=== PATIENT | female | born 1950 | race Caucasian/White ===

== ENCOUNTER 2017-10-21 13:11 | Emergency (ER) | payer MEDICARE, OTHER ==
[~2017-10-21] VITALS: Ht 157.5 cm; Wt 59.0 kg
[~2017-10-21 13:11] MED LIST: ASPI1TAB PO; CETI10TA17 PO; ESTR1TAB24 PO; HYDR-3454 PO; LEVO75TA57 PO; LVT.05T; MELO-198 PO; MULT-1029 PO; NF-ESOM40C; PSYL1CAP3 PO; ZINC50TA49 PO; estrogen PO
--- OUTSIDE RECORDS SUMMARY | 2017-10-21 13:17 | XMS REPORT | Continuity of Care Document ---
Author Author [facility] Organization [facility] Address Unknown Phone Unavailable Allergies Active Description Code Type Severity Reaction Onset Reported/Identified Relationship to Patient Clinical Status Yes codeine [id number] Drug Allergy Unknown UNKNOWN 03/02/2007 Yes propoxyphene [id number] Drug Allergy Unknown UNKNOWN 03/02/2007 Yes metronidazole [id number] Drug Allergy Moderate HIVES 06/29/2014 Medications There is no data. Problems Date Dx Coded Attending Type Code Diagnosis Diagnosed By 05/11/2013 MICAH BARRERA DO Ot 242.90 THYROTOX NOS NO CRISIS 05/11/2013 MICAH BARRERA DO Ot 276.51 DEHYDRATION 05/11/2013 MICAH BARRERA DO Ot 780.2 SYNCOPE AND COLLAPSE 06/27/2014 NARINDER RINCON, WILSON Vasques Ot 455.3 EXT HEMORRHOID W/O COMPL 06/27/2014 NARINDER RINCON, WILSON Vasques Ot 455.9 RESIDUAL HEMORRHOID TAGS 06/27/2014 NARINDER RINCON, WILSON Vasques Ot 562.10 DIVERTICULOSIS COLON (W/O MENT OF HEMORR 06/27/2014 NARINDER RINCON, WILSON Vasques Ot V74.8 SCREEN-BACTERIAL DIS NEC 07/13/2014 YING RINCON, JANICE Hays Ot V76.12 06/20/2015 YING RINCON, JANICE Hays Ot 793.89 06/20/2015 JANICE HE MD, Ot V76.12 06/20/2015 JANICE HE MD Ot 793.80 06/20/2015 JANICE HE MD, Ot V76.12 06/20/2015 NARINDER RINCON, WILSON Vasques Ot 569.3 06/20/2015 NARINDER RINCON, WILSON Vasques Ot V16.0 06/20/2015 NARINDER RINCON, WILSON Vasques Ot V72.84 07/17/2015 YING RINCON, JANICE Hays Ot Z12.31 07/19/2015 JANICE HE MD, Ot R93.8 12/26/2015 JANICE HE MD, Ot R92.8 OTH ABN AND INCONCLUSIVE FINDINGS ON DX 12/26/2015 JANICE HE MD, Ot R92.8 OTH ABN AND INCONCLUSIVE FINDINGS ON DX 01/23/2016 JANICE HE MD, Ot R92.8 OTH ABN AND INCONCLUSIVE FINDINGS ON DX 04/17/2016 JANICE HE MD, Ot 793.89 OTH (ABN) FINDINGS ON RADIOLOGICAL EXAMI 04/17/2016 JANICE HE MD, Ot V76.12 OTH SCREEN MAMMO-MALIGN NEOPLASM OF RAGHU 04/17/2016 JANICE HE MD Ot 793.80 UNSPEC ABNORMAL MAMMOGRAM 04/17/2016 JANICE HE MD, Ot V76.12 OTH SCREEN MAMMO-MALIGN NEOPLASM OF RAGHU 04/17/2016 WILSON BARCENAS MD Ot 569.3 RECTAL ANAL HEMORRHAGE 04/17/2016 WILSON BARCENAS MD Ot V16.0 FAMILY HX-GI MALIGNANCY 04/17/2016 NARINDER RINCON, WILSON Vasques Ot V72.84 EXAM PRE-OPERATIVE NOS 04/17/2016 JANICE HE MD, Ot Z12.31 ENCNTR SCREEN MAMMOGRAM FOR MALIGNANT NE 04/17/2016 JANICE HE MD, Ot R93.8 ABNORMAL FINDINGS ON DIAGNOSTIC IMAGING 04/17/2016 JANICE HE MD, Ot R92.8 OTH ABN AND INCONCLUSIVE FINDINGS ON DX 05/03/2016 JANICE HE MD, Ot 793.89 OTH (ABN) FINDINGS ON RADIOLOGICAL EXAMI 05/03/2016 JANICE HE MD, Ot V76.12 OTH SCREEN MAMMO-MALIGN NEOPLASM OF RAGHU 05/03/2016 JANICE HE MD Ot 793.80 UNSPEC ABNORMAL MAMMOGRAM 05/03/2016 JANICE HE MD, Ot V76.12 OTH SCREEN MAMMO-MALIGN NEOPLASM OF RAGHU 05/03/2016 WILSON BARCENAS MD Ot 569.3 RECTAL ANAL HEMORRHAGE 05/03/2016 NARINDER RINCON, WILSON Vasques Ot V16.0 FAMILY HX-GI MALIGNANCY 05/03/2016 NARINDER RINCON, WILSON Vasuqes Ot V72.84 EXAM PRE-OPERATIVE NOS 05/03/2016 JANICE HE MD Ot Z12.31 ENCNTR SCREEN MAMMOGRAM FOR MALIGNANT NE 05/03/2016 JANICE HE MD Ot R93.8 ABNORMAL FINDINGS ON DIAGNOSTIC IMAGING 05/03/2016 JANICE HE MD, Ot R92.8 OTH ABN AND INCONCLUSIVE FINDINGS ON DX 05/07/2016 JANICE HE MD Ot 793.89 OTH (ABN) FINDINGS ON RADIOLOGICAL EXAMI 05/07/2016 JANICE HE MD, Ot V76.12 OTH SCREEN MAMMO-MALIGN NEOPLASM OF RAGHU 05/07/2016 JANICE HE MD Ot 793.80 UNSPEC ABNORMAL MAMMOGRAM 05/07/2016 JANICE HE MD, Ot V76.12 OTH SCREEN MAMMO-MALIGN NEOPLASM OF RAGHU 05/07/2016 NARINDER RINCON, WILSON Vasques Ot 569.3 RECTAL ANAL HEMORRHAGE 05/07/2016 NARINDER RINCON, WILSON Vasques Ot V16.0 FAMILY HX-GI MALIGNANCY 05/07/2016 NARINDER RINCON, WILSON M Ot V72.84 EXAM PRE-OPERATIVE NOS 05/07/2016 JANICE HE MD, Ot Z12.31 ENCNTR SCREEN MAMMOGRAM FOR MALIGNANT NE 05/07/2016 JANICE HE MD Ot R93.8 ABNORMAL FINDINGS ON DIAGNOSTIC IMAGING 05/07/2016 JANICE HE MD Ot R92.8 OTH ABN AND INCONCLUSIVE FINDINGS ON DX 05/07/2016 JANICE HE MD Ot 793.89 OTH (ABN) FINDINGS ON RADIOLOGICAL EXAMI 05/07/2016 JANICE HE MD, Ot V76.12 OTH SCREEN MAMMO-MALIGN NEOPLASM OF RAGHU 05/07/2016 JANICE HE MD Ot 793.80 UNSPEC ABNORMAL MAMMOGRAM 05/07/2016 JANICE HE MD, Ot V76.12 OTH SCREEN MAMMO-MALIGN NEOPLASM OF RAGHU 05/07/2016 NARINDER RINCNO, WILSON Vasques Ot 569.3 RECTAL ANAL HEMORRHAGE 05/07/2016 WILSON BARCENAS MD Ot V16.0 FAMILY HX-GI MALIGNANCY 05/07/2016 WILSON BARCENAS MD Ot V72.84 EXAM PRE-OPERATIVE NOS 05/07/2016 JANICE HE MD Ot Z12.31 ENCNTR SCREEN MAMMOGRAM FOR MALIGNANT NE 05/07/2016 JANICE HE MD Ot R93.8 ABNORMAL FINDINGS ON DIAGNOSTIC IMAGING 05/07/2016 JANICE HE MD, Ot R92.8 OTH ABN AND INCONCLUSIVE FINDINGS ON DX 05/07/2016 RUI CALLAHAN MD Ot M70.72 OTHER BURSITIS OF HIP, LEFT HIP 05/29/2016 RUI CALLAHAN MD Ot M70.72 OTHER BURSITIS OF HIP, LEFT HIP 06/24/2016 JANICE HE MD Ot 793.89 OTH (ABN) FINDINGS ON RADIOLOGICAL EXAMI 06/24/2016 JANICE HE MD Ot V76.12 OTH SCREEN MAMMO-MALIGN NEOPLASM OF RAGHU 06/24/2016 JANICE HE MD Ot 793.80 UNSPEC ABNORMAL MAMMOGRAM 06/24/2016 JANICE HE MD Ot V76.12 OTH SCREEN MAMMO-MALIGN NEOPLASM OF RAGHU 06/24/2016 NARINDER RINCON, WILSON Vasques Ot 569.3 RECTAL ANAL HEMORRHAGE 06/24/2016 WILSON BARCENAS MD Ot V16.0 FAMILY HX-GI MALIGNANCY 06/24/2016 WILSON BARCENAS MD Ot V72.84 EXAM PRE-OPERATIVE NOS 06/24/2016 JANICE HE MD Ot Z12.31 ENCNTR SCREEN MAMMOGRAM FOR MALIGNANT NE 06/24/2016 JANICE HE MD Ot R93.8 ABNORMAL FINDINGS ON DIAGNOSTIC IMAGING 06/24/2016 JANICE HE MD Ot R92.8 OTH ABN AND INCONCLUSIVE FINDINGS ON DX 06/24/2016 RUI CALLAHAN MD Ot M70.72 OTHER BURSITIS OF HIP, LEFT HIP 06/24/2016 JANICE HE MD Ot 793.89 OTH (ABN) FINDINGS ON RADIOLOGICAL EXAMI 06/24/2016 JANICE HE MD, Ot V76.12 OTH SCREEN MAMMO-MALIGN NEOPLASM OF RAGHU 06/24/2016 JANICE HE MD, Ot 793.80 UNSPEC ABNORMAL MAMMOGRAM 06/24/2016 JANICE HE MD, Ot V76.12 OTH SCREEN MAMMO-MALIGN NEOPLASM OF RAGHU 06/24/2016 WILSON BARCENAS MD Ot 569.3 RECTAL ANAL HEMORRHAGE 06/24/2016 WILSON BARCENAS MD Ot V16.0 FAMILY HX-GI MALIGNANCY 06/24/2016 WILSON BARCENAS MD Ot V72.84 EXAM PRE-OPERATIVE NOS 06/24/2016 JANICE HE MD, Ot Z12.31 ENCNTR SCREEN MAMMOGRAM FOR MALIGNANT NE 06/24/2016 JANICE HE MD, Ot R93.8 ABNORMAL FINDINGS ON DIAGNOSTIC IMAGING 06/24/2016 JANICE HE MD, Ot R92.8 OTH ABN AND INCONCLUSIVE FINDINGS ON DX 06/24/2016 LONODN RINCON, RUI Agudelo Ot M70.72 OTHER BURSITIS OF HIP, LEFT HIP 06/25/2016 JANICE HE MD, Ot Z12.31 ENCNTR SCREEN MAMMOGRAM FOR MALIGNANT NE 06/25/2016 JANICE HE MD, Ot N64.89 OTHER SPECIFIED DISORDERS OF BREAST 06/30/2016 JANICE HE MD, Ot N64.89 OTHER SPECIFIED DISORDERS OF BREAST 07/04/2016 JANICE HE MD, Ot N64.89 OTHER SPECIFIED DISORDERS OF BREAST 07/04/2016 JANICE HE MD, Ot Z12.31 ENCNTR SCREEN MAMMOGRAM FOR MALIGNANT NE 08/07/2016 JANICE HE MD, Ot N64.89 OTHER SPECIFIED DISORDERS OF BREAST 08/07/2016 JANICE HE MD, Ot Z12.31 ENCNTR SCREEN MAMMOGRAM FOR MALIGNANT NE Procedures There is no data. Results There is no data. Encounters ACCT No. Visit Date/Time Discharge Status Pt. Type Provider Facility Loc./Unit Complaint [id number] 06/24/2016 09:16:00 06/24/2016 23:59:59 CLS Outpatient JANICE HE MD [facility] RAD 6 MONTH F/U [id number] 05/06/2016 09:28:00 05/06/2016 23:59:59 CLS Outpatient RUI CALLAHAN MD [facility] RAD HIP BURSITIS/PAIN [id number] 12/25/2015 12:50:00 12/25/2015 23:59:59 CLS Outpatient JANICE HE MD [facility] RAD 6 MONTH FOLLOW UP RIGHT BREAST [id number] 06/28/2015 07:31:00 06/28/2015 23:59:59 CLS Outpatient JANICE HE MD [facility] RAD ABNORMAL MAMMO [id number] 06/20/2015 12:29:00 06/20/2015 23:59:59 CLS Outpatient JANICE HE MD [facility] RAD SCREENING [id number] 06/27/2014 09:42:00 06/27/2014 16:00:00 DIS Outpatient WILSON BARCENAS MD [facility] SDC SCREENING COLONOSCOPY , ANAL SKIN TAG, EUA [id number] 06/24/2014 09:00:00 06/24/2014 23:59:59 CLS Outpatient WILSON BARCENAS MD [facility] PREOP RECTAL BLEEDING, SCREENING COLON, SKIN TAG, FX HX [id number] 06/16/2014 09:00:00 06/16/2014 23:59:59 CLS Outpatient JANICE HE MD [facility] RAD ROUTINE [id number] 05/20/2013 08:05:00 05/20/2013 23:59:59 CLS Outpatient JANICE HE MD [facility] RAD ABN MAMMO [id number] 05/11/2013 08:57:00 05/11/2013 23:59:59 CLS Outpatient JANICE HE MD [facility] RAD SCREENING [id number] 05/11/2013 09:52:00 05/11/2013 12:49:00 DIS Emergency MICAH BARRERA DO [facility] ER SYNCOPE
--- NOTE | 2017-10-21 13:38 | ED Upper Extremity ---
General Chief Complaint: Upper Extremity Stated Complaint: RT ARM INJURY-FALL History of Present Illness Date Seen by Provider: Oct 21, 2017 Time Seen by Provider: 13:32 Initial Comments Patient presents to the ER with complaints of right elbow right shoulder pain after a fall this morning at [employer]. Patient reports walking down 3 steps and slipping and falling onto her right side. Patient reports pain with pronation and supination of the right arm and wrist. Patient denies any head and neck pain, and denies LOC. Pain/Injury Location: right shoulder, right arm, right elbow, right forearm Method of Injury: fell Modifying Factors: Worse With Movement Allergies and Home Medications Allergies Coded Allergies: metronidazole (Verified Allergy, Intermediate, HIVES, 06/29/14) codeine (Unverified Allergy, Unknown, UNKNOWN, 03/02/07) propoxyphene (Unverified Allergy, Unknown, UNKNOWN, 03/02/07) Home Medications Aspirin/Acetaminophen/Caffeine 1 Tab Tablet, 1 TAB PO PRN, (Reported) Cetirizine Hcl 10 Mg Tablet, 10 MG PO DAILY, (Reported) Estradiol 1 Mg Tablet, 1 MG PO DAILY, (Reported) Meloxicam 7.5 Mg Tablet, 1 EACH PO DAILY, (Reported) Mu-Vits-Min Th/Lycopene/Lutein 1 Each Tablet, 1 EACH PO DAILY, (Reported) Psyllium Husk/Ca Carbonate 1 Cap Capsule, 1 CAP PO QID, (Reported) Zinc Amino Acid Chelate 50 Mg Tablet, 50 MG PO DAILY, (Reported) Patient Home Medication List Home Medication List Reviewed: Yes Constitutional: no symptoms reported, see HPI EENTM: see HPI, no symptoms reported (platelet) Respiratory: no symptoms reported, see HPI Cardiovascular: no symptoms reported, see HPI (4) Gastrointestinal: no symptoms reported, see HPI Genitourinary: no symptoms reported, see HPI Musculoskeletal: see HPI, other (right shoulder and right forearm) Skin: no symptoms reported, see HPI Psychiatric/Neurological: No Symptoms Reported, See HPI Past Etpgkkq-Hfmyvm-Zflkcc Hx Patient Social History Recent Foreign Travel: No Contact w/Someone Who Travel: No Immunizations Up To Date Date of Influenza Vaccine: Jun 21, 2014 Seasonal Allergies Seasonal Allergies: Yes Reproductive System Hx Reproductive Disorders: Yes Genitourinary Genitourinary Disorders: Bladder Infection Gastrointestinal Gastrointestinal Disorders: Gastroesophageal Reflux, Hiatal Hernia Endocrine Endocrine Disorders: Hypothyroidsim Physical Exam Vital Signs Vital Signs - First Documented 10/21/17 13:25 Temp 97.5 Pulse 86 Resp 18 B/P (MAP) 134/79 (97) Pulse Ox 98 Capillary Refill : General Appearance: WD/WN, no apparent distress HEENT: PERRL/EOMI, normal ENT inspection Neck: non-tender, full range of motion Cardiovascular: normal peripheral pulses, regular rate, rhythm, no edema, no gallop, no JVD, no murmur, other (radial pulses strong and capillary Refill is normal.) Respiratory: chest non-tender, lungs clear, normal breath sounds, no respiratory distress Gastrointestinal: normal bowel sounds, non tender Back: normal inspection, no CVA tenderness Shoulder: bone tenderness, limited ROM, pain Elbow/Forearm: Right, bone tenderness, limited ROM, pain Wrist: Yes normal inspection, Yes pain (with pronation and supination) Hand: normal inspection (patient maintains normal function and sensation of the right hand. Patient able to perform the okay sign and the thumbs up sign without difficulty.) Neurologic/Tendon: normal sensation Neurologic/Psychiatric: alert, normal mood/affect, oriented x 3 Skin: normal color, warm/dry Lymphatic: no adenopathy Splinting and Joint Reduction : Progress posterior long arm splint applied. 4in orthoglass. soft roll. and yrn bandage used. Yrn wrap: Yes Arm Sling: Medium Splint Application: Long Arm Progress/Results/Core Measures Results/Orders My Orders Orders - CHARY AMARO APRN Forearm, Right, 2 Views (10/21/17 13:31) Humerus, Right, 2 Views (10/21/17 13:31) Acetaminophen Tablet (Tylenol Tablet) (10/21/17 13:45) Elbow, Right, 3 Views (10/21/17 14:36) Medications Given in ED Current Medications Medications Dose Ordered Sig/Kassandra Route Start Time Stop Time Status Last Admin Dose Admin Acetaminophen 1,000 mg ONCE ONCE PO 10/21/17 13:45 10/21/17 13:46 DC 10/21/17 13:41 1,000 MG Vital Signs/I&O Vital Sign - Last 12Hours 10/21/17 13:25 Temp 97.5 Pulse 86 Resp 18 B/P (MAP) 134/79 (97) Pulse Ox 98 Diagnostic Imaging Diagonstic Imaging: Xray Comments NAME: JOE WARD [facility] REC#: [id number] PT STATUS: REG ER : 1950 PHYSICIAN: CHARY AMARO APRN ADMIT DATE: 10/21/17/ER Draft Date of Exam:10/21/17 ELBOW, RIGHT, 3 VIEWS INDICATION: Right elbow pain. AP, oblique, and lateral views of the right elbow are obtained at 03:20 p.m. There is a focal area of irregularity in the radial head, suspicious for a nondisplaced fracture. The proximal ulna and distal humerus are intact. IMPRESSION: Findings compatible with radial head fracture, follow-up is recommended. Dictated on workstation # [id number] Dict: 10/21/17 1511 Trans: 10/21/17 1516 [id number] Interpreted by: YANET ROSE MD Electronically signed by: Departure Impression Impression: Primary Impression: Radial head fracture Disposition: 01 HOME, SELF-CARE Condition: Stable Departure-Patient Inst. Decision time for Depature: 15:09 Referrals: KENISHA WILLAMS MD, JOHN M MD (PCP/Family) Primary Care Physician RUI CALLAHAN MD, JOHN T MD STRINGER, ROBERT F DO ZAFUTA, MICHAEL P MD Patient Instructions: Elbow Fracture (DC) Add. Discharge Instructions: 1. Return to ER for any concerns 2. Follow-up with orthopedics. Call orthopedic surgeon of your choosing tomorrow to make an appointment to be seen within the next 2-3 weeks. Wear the splint at all times until then. Do not remove it. This this means even showering without on keeping and dry. CHARY AMARO APRN Oct 21, 2017 13:38
[2017-10-21] MEDS ORDERED: ACETAMINOPHEN 500 MG TAB (TYLENOL) PO ONE (13:45)
--- NOTE | 2017-10-21 14:18 | Diagnostic Imaging Report ---
INDICATION: Fall with pain in the right arm shooting to the thumb. TIME OF EXAM: 02:21 p.m. FINDINGS: Two views of the right forearm were obtained. The lateral view does show a prominent anterior fat pad at the elbow. There is some lucency and irregularity involving the radial head, suspicious for a fracture. The remainder of the radius and ulna is intact. IMPRESSION: Findings suggestive of radial head fracture and elbow joint effusion. Dedicated elbow radiographs with radial head views are recommended for further evaluation. Dictated by: Dictated on workstation # [id number]
--- NOTE | 2017-10-21 14:20 | Diagnostic Imaging Report ---
INDICATION: Fall with right arm pain. TIME OF EXAM: 02:18 p.m. FINDINGS: Two views of the right humerus were obtained. There is normal alignment at the glenohumeral joint. There also is normal elbow alignment. The humerus appears intact. No fractures are seen. IMPRESSION: No acute bony abnormality is detected. Dictated by: Dictated on workstation # [id number]
--- NOTE | 2017-10-21 15:17 | Diagnostic Imaging Report ---
INDICATION: Right elbow pain. AP, oblique, and lateral views of the right elbow are obtained at 03:20 p.m. There is a focal area of irregularity in the radial head, suspicious for a nondisplaced fracture. The proximal ulna and distal humerus are intact. IMPRESSION: Findings compatible with radial head fracture, follow-up is recommended. Dictated by: Dictated on workstation # [id number]
[2017-10-21 15:53] VITALS: BP 134/79
== END 2017-10-21 15:33 | disposition home or self-care (01) ==
LOC: EDUNIT# 13:11 → ER 13:13
DX: S52.121A Displaced fracture of head of right radius, initial encounter for closed fracture (principal); K21.9 Gastro-esophageal reflux disease without esophagitis; E03.9 Hypothyroidism, unspecified; Z87.19 Personal history of other diseases of the digestive system; Z79.82 Long term (current) use of aspirin; Z90.710 Acquired absence of both cervix and uterus; Z88.1 Allergy status to other antibiotic agents; Z88.5 Allergy status to narcotic agent; Z88.6 Allergy status to analgesic agent; W10.8XXA Fall (on) (from) other stairs and steps, initial encounter
CPT/HCPCS: 29105; 73060; 73080; 73090

== ENCOUNTER 2017-12-16 13:39 | Outpatient (RCR) | payer OTHER, MEDICARE | END 2018-01-14 13:38 | disposition home or self-care (01) | PROVIDERS: ATTEND Emergency Medicine | DX: S52.121D Displaced fracture of head of right radius, subsequent encounter for closed fracture with routine healing (principal) ==

== ENCOUNTER → 2018-01-15 | Outpatient (CLI) | payer MEDICARE, OTHER ==
--- NOTE | 2018-01-15 19:28 | Diagnostic Imaging Report ---
INDICATION: Routine screening. COMPARISON: Comparison is made with prior study from 06/24/2016 and 06/20/2015. TECHNIQUE: 2D and 3D bilateral screening mammography was performed with computer-aided detection (CAD) system. FINDINGS: Both breasts are heterogeneously dense, limiting the sensitivity of mammography. The parenchymal pattern is stable. No mass or malignant appearing microcalcifications are seen. The axillae are unremarkable. IMPRESSION: No mammographic features suspicious for malignancy are identified. ACR BI-RADS Category 1: Negative. Result letter will be mailed to the patient. Note: At least 10% of breast cancer is not imaged by mammography. Dictated by: Dictated on workstation # [id number]
== END ==
LOC: RAD 15:08
PROVIDERS: ATTEND Obstetrics & Gynecology
DX: Z12.31 Encounter for screening mammogram for malignant neoplasm of breast (principal)
CPT/HCPCS: 77067

== ENCOUNTER → 2018-06-02 | Outpatient (CLI) | payer MEDICARE, OTHER ==
--- NOTE | 2018-06-02 13:23 | Diagnostic Imaging Report ---
PROCEDURE: MRI lumbar spine. TECHNIQUE: Multiplanar, multisequence MRI of the lumbar spine was performed without contrast. INDICATION: Fall in October 2017 with low back pain and right lower extremity radiculopathy. No prior studies are available for comparison. FINDINGS: There is normal lumbar lordotic curvature. There is mild S-shaped curvature of the lumbar spine, convex to the right in the upper portion and convex to the left in the lower portion. Minimal retrolisthesis of L1 on L2 is noted. Vertebral body heights are maintained. No acute compression fracture is detected. No geographic marrow lesions are seen apart from benign hemangiolipomas within multiple lower thoracic and lumbar vertebral bodies. There is degenerative disc disease at all levels of the lumbar spine. Disc space narrowing, desiccation and endplate osteophyte formation is seen at multiple levels. The conus is unremarkable at the L1 level. T12-L1: Central canal is widely patent. Neuroforamina appear patent. L1-L2: Broad-based left paramidline disc bulge is seen indenting the ventral thecal sac. There also appears to be left posterolateral broad-based disc/osteophyte complex resulting in moderate left neuroforaminal and lateral recess stenosis. The right neuroforamen is patent. L2-L3: There is asymmetric left posterolateral broad-based disc/osteophyte complex narrowing the left lateral recess and left neuroforamen. Right neuroforamen and central canal are patent. L3-L4: There are degenerative facet changes and ligamentous thickening resulting in some trefoil configuration of the thecal sac. There is broad-based disc/osteophyte complex narrowing the lateral recesses bilaterally. Neuroforamina are patent bilaterally. L4-L5: Hypertrophic facet changes with ligamentous thickening and moderate trefoil stenosis to the central canal is noted. Broad-based disc/osteophyte complex does result in bilateral lateral recess stenosis and mild right neuroforaminal stenosis. Left neuroforamen is patent. L5-S1: Hypertrophic facet changes are noted. Central canal is patent. Bilateral neuroforamina and lateral recesses are patent. The paraspinous tissues are unremarkable. IMPRESSION: Lumbar spondylosis and scoliosis with multilevel central canal, lateral recess and neuroforaminal stenosis described level by level above. No acute compression fracture is detected. Dictated by: Dictated on workstation # [id number]
== END ==
LOC: RAD 10:29
PROVIDERS: ATTEND Pain Medicine Interventional Pain Medicine
DX: M48.061 Spinal stenosis, lumbar region without neurogenic claudication (principal); M47.816 Spondylosis without myelopathy or radiculopathy, lumbar region; M51.36 Other intervertebral disc degeneration, lumbar region; M41.86 Other forms of scoliosis, lumbar region
CPT/HCPCS: 72148

== ENCOUNTER → 2019-02-02 | Outpatient (CLI) | payer MEDICARE, OTHER ==
--- NOTE | 2019-02-02 19:02 | Diagnostic Imaging Report ---
INDICATION: Routine screening. CORRELATION is made with prior mammogram 01/15/2018 and 06/24/2016. 2-D and 3-D bilateral screening mammography was performed with CAD. FINDINGS: Both breasts remain heterogeneously dense, limiting the sensitivity of mammography. The parenchymal pattern is stable. No mass or malignant appearing microcalcifications are seen. Axillae are unremarkable. IMPRESSION: BI-RADS category 1. No mammographic features suspicious for malignancy are identified. ACR BI-RADS Category 1: Negative. Result letter will be mailed to the patient. Note: At least 10% of breast cancer is not imaged by mammography. Dictated by: Dictated on workstation # [id number]
== END ==
LOC: RAD 14:01
PROVIDERS: ATTEND Obstetrics & Gynecology
DX: Z12.31 Encounter for screening mammogram for malignant neoplasm of breast (principal)
CPT/HCPCS: 77067

== ENCOUNTER 2019-05-21 11:02 | Outpatient (RCR) | payer MEDICARE, OTHER | END 2019-06-29 14:08 | disposition home or self-care (01) | PROVIDERS: ATTEND Pain Medicine Interventional Pain Medicine | DX: M54.16 Radiculopathy, lumbar region (principal) ==

== ENCOUNTER → 2022-02-11 | Outpatient (CLI) | payer MEDICARE, OTHER ==
--- NOTE | 2022-02-12 13:10 | Diagnostic Imaging Report ---
INDICATION: Routine screening. COMPARISON: 02/02/2019 and 01/15/2018. TECHNIQUE: 2D and 3D bilateral screening mammography was performed with CAD. FINDINGS: Both breasts remain heterogeneously dense, limiting the sensitivity of mammography. The overall parenchymal pattern is stable. No mass or malignant-appearing microcalcifications are seen. The axillae are unremarkable. IMPRESSION: No mammographic features suspicious for malignancy are identified. ACR BI-RADS Category 1: Negative. Result letter will be mailed to the patient. Note: At least 10% of breast cancer is not imaged by mammography. Dictated by: Dictated on workstation # [id number]
== END ==
LOC: RAD 14:45
PROVIDERS: ATTEND Obstetrics & Gynecology
DX: Z12.31 Encounter for screening mammogram for malignant neoplasm of breast (principal)
CPT/HCPCS: 77063; 77067

== ENCOUNTER → 2022-03-22 | Outpatient (CLI) | payer MEDICARE, OTHER ==
[~2022-03-22] MED LIST changes: +ASPI1TAB23 PO; +ESTR1TAB27 PO; +MELO7.5T46 PO; +OMEG1CAP24 PO
== END ==
LOC: PREOP 05:28
PROVIDERS: ATTEND Obstetrics & Gynecology
DX: Z01.818 Encounter for other preprocedural examination (principal)

== ENCOUNTER 2022-03-29 07:08 | Day surgery (SDC) | payer MEDICARE, OTHER ==
[2022-03-29] VITALS (12 sets, daily range): BP systolic 108–140; BP diastolic 58–80
[~2022-03-29] VITALS: Ht 157.5 cm; Wt 67.3 kg
[2022-03-29] MEDS ORDERED: ESTRADIOL VAGINAL CREAM 42.5 GM (ESTRACE) VG ONE (07:16)
[2022-03-29] MEDS ORDERED: proPOfol 200 MG/20 ML (DIPRIVAN) VIAL IV ONE (07:30)
[2022-03-29] MEDS ORDERED: LIDOCAINE PF 2% 5 ML (XYLOCAINE) VIAL ONE (07:30)
[2022-03-29] MEDS ORDERED: ONDANSETRON 4 MG/2 ML (SDV) Z0FRAN ONE ×2 (07:30→07:48)
[2022-03-29] MEDS ORDERED: fentaNYL INJ 100 MCG/2 ML AMP ONE (07:30)
[2022-03-29] MEDS: LACTATED RINGERS 1,000 ML IV PRN ×2 (07:40→09:06)
[2022-03-29] MEDS ORDERED: ceFAZolin INJECTION 1,000 MG ONE (07:48)
[2022-03-29] MEDS ORDERED: FAMOTIDINE 20MG/2ML IV (PEPCID) ONE (07:48)
[2022-03-29 07:52] LABS: BASOPHILS % (AUTO) 1 % (0-10); EOSINOPHILS # (AUTO) 0.4 10^3/uL (0.0-0.3); EOSINOPHILS % (AUTO) 10 % (0-10); HEMATOCRIT 40 % (35-52); HEMOGLOBIN 13.2 g/dL (11.5-16.0); LYMPHOCYTES % (AUTO) 23 % (12-44); MEAN CORPUSCULAR HEMOGLOBIN 31 pg (25-34); MEAN CORPUSCULAR HGB CONC 33 g/dL (32-36); MEAN CORPUSCULAR VOLUME 93 fL (80-99); MEAN PLATELET VOLUME 9.2 fL (9.0-12.2); MONOCYTES # (AUTO) 0.5 10^3/uL (0.0-1.0); MONOCYTES % (AUTO) 13 % (0-12); NEUTROPHILS # (AUTO) 2.2 10^3/uL (1.8-7.8); NEUTROPHILS % (AUTO) 53 % (42-75); PLATELET COUNT 232 10^3/uL (130-400); WHITE BLOOD COUNT 4.2 10^3/uL (4.3-11.0)
[2022-03-29] MEDS ORDERED: ONDANSETRON 4 MG/2 ML (SDV) Z0FRAN IVP ONE (08:00)
[2022-03-29] MEDS ORDERED: ceFAZolin INJECTION 1,000 MG VIAL IV ONE (08:00)
[2022-03-29] MEDS ORDERED: FAMOTIDINE 20MG/2ML IV (PEPCID) IVP ONE (08:00)
[2022-03-29] MEDS ORDERED: fentaNYL INJ 100 MCG/2 ML AMP IVP PRN (08:15)
[2022-03-29] MEDS ORDERED: ESTROGENS CONJ INJECTION 25 MG in WATER (STERILE) FOR INJECTION 5 ML IV ONE (08:15)
[2022-03-29] MEDS ORDERED: BENZOCAINE/MENTHOL (DERMOPLAST) 56 ML CAN TP PRN (08:15)
[2022-03-29] MEDS ORDERED: KETOROLAC 30 MG/ML VIAL IV SCH (08:15)
[2022-03-29] MEDS ORDERED: oxyCODONE/APAP 5/325MG (PERCOCET 5) TABLET PO PRN (08:15)
[2022-03-29] MEDS ORDERED: ONDANSETRON 4 MG/2 ML (SDV) Z0FRAN IVP PRN ×3 (08:15→09:45)
--- NOTE | 2022-03-29 08:52 | Progress Note-Pre Operative ---
Pre-Operative Progress Note Date of Available H&P: Mar 29, 2022 Date H&P Reviewed: Mar 29, 2022 Time H&P Reviewed: 08:00 Changes from last HP NO CHANGE Pre-Operative Diagnosis: INCONTINENCE SHANITA GARY MD Mar 29, 2022 08:52
--- NOTE | 2022-03-29 08:53 | Progress Note-Post Operative ---
Post-Operative Progess Note Surgeon (s)/Pharmacy Service Associate (s) Surgeon SHANITA GARY MD Pharmacy Service Associate: YING Pre-Operative Diagnosis INCONTINENCE Post-Operative Diagnosis SAME Procedure & Operative Findings Date of Procedure 03/29/22 Procedure Performed/Findings PVS AND CYSTO Anesthesia Type GENERAL Estimated Blood Loss Estimated blood loss (mL): NEGLIGIBLE Specimens/Packing Specimens Removed NONE PackinG ESTRACE VAG PACK SHANITA GARY MD Mar 29, 2022 08:53
[2022-03-29] MEDS ORDERED: SEVOFLURANE (ULTANE) 15 ML INHAL SOLN ONE (09:18)
[2022-03-29] MEDS ORDERED: HYDROmorphone 2 MG/ML VIAL (DILAUDID) ONE (09:22)
[2022-03-29] MEDS ORDERED: HYDROmorphone 2 MG/ML VIAL (DILAUDID) IV ONE (09:45)
[2022-03-29] MEDS ORDERED: morphine INJ 10 MG/ML 1ML (SYR OR VIAL) IVP ONE (09:45)
[2022-03-29] MEDS ORDERED: KETOROLAC 30 MG/ML VIAL ONE (09:47)
[2022-03-29] MEDS ORDERED: ESTROGENS CONJ INJECTION 5 ML ONE (09:47)
[2022-03-29] MEDS ORDERED: WATER (STERILE) FOR INJECTION 10 ML ONE (09:48)
[2022-03-29] MEDS ORDERED: SCOPOLAMINE 1.5 MG (TRANSDERM-SCOP) PATCH TD NR (11:15)
--- NOTE | 2022-03-29 13:58 | Discharge Inst-Surgical ---
Discharge Inst-Surgical Depart Medication/Instructions New, Converted or Re-Newed RX: Transmitted to Pharmacy Consults/Follow Up Patient Instructions: As directed Orders & Referrals Follow Up Appt: Call to make follow up appt. for patient in 4 weeks. Activity: Rest for 24 hours, than as tolerated. Patient may continue her own home medications and additional prescription for Percocet and Colace have been sent to patient's pharmacy from my clinic Diet: As tolerated shower or tub bathe as desired. No driving for 24 hours, no alcoholic beverages for 24 hours, and nothing per vagina (no tampons, douching, or intercourse) for 4 weeks. Patient to return to the clinic as soon as possible for: Temperature greater than 101F, Severe Pain, Foul discharge from incision or vagina, Excessive Bleeding (more than a period). Activity Activity as Tolerated: No Diet Discharge Diet: No Restrictions JANICE HE MD Mar 29, 2022 13:58
--- NOTE | 2022-03-29 15:42 | OPERATIVE REPORT ---
DATE OF SERVICE: 03/29/2022 PREOPERATIVE DIAGNOSIS: On my part, urinary incontinence. POSTOPERATIVE DIAGNOSIS: On my part, urinary incontinence. OPERATION PERFORMED: Pubovaginal sling and cystoscopy. SURGEON: Danie Gary MD. SENIOR COBOL DEVELOPER: Dr. Patel. ANESTHESIA: General. COMPLICATIONS: None. DESCRIPTION OF PROCEDURE: After Dr. Patel performed the first part of his surgery that he will dictate, I inserted a Gamboa catheter. I passed the Desara II instrument on both sides using the described technique. The sling was sitting nicely under the mid urethra with no tension, no twisting and passage of a curved hemostat easily between it and the underlying tissue. I removed the Gamboa catheter to perform cystoscopy to confirm the integrity of the bladder, urethra, ureters with no foreign body and presence of the sling under the mid urethra. I left the bladder half full, removed the cystoscope, performed a manual Valsalva maneuver that was negative. I reinserted the Gamboa catheter draining clear fluid. Estimated blood loss on my part negligible. The patient tolerated the procedure and anesthesia well and Dr. Patel procedure was the rest of his surgery that he will dictate. CC: Dr. Patel-requested, unable to deliver. Job ID: [id number] DocumentID: [id number] Dictated Date: 03/29/2022 08:55:14 Senior Research Executive Date: 03/29/2022 15:41:31 Dictated By: DANIE GARY MD
[2022-03-29] MEDS: KETOROLAC 30 MG/ML VIAL IV SCH ×2 (17:17→23:00)
[2022-03-29] MEDS: D5 LR IV SOLUTION 1,000 ML IV SCH ×2 (17:18→22:18)
--- NOTE | 2022-03-29 19:27 | OPERATIVE REPORT ---
DATE OF SERVICE: 03/29/2022 PREOPERATIVE DIAGNOSIS: Vaginal prolapse and stress urinary incontinence. POSTOPERATIVE DIAGNOSIS: Vaginal prolapse and stress urinary incontinence. OPERATIVE PROCEDURE: Anterior and posterior vaginal repairs with enterocele repair as well as sacrospinous ligament suspension and Dr. Bowen did a pubovaginal sling and cystoscopy. OPERATIVE DESCRIPTION: With the patient in supine position under satisfactory general anesthesia, she was repositioned in dorsal lithotomy position in the Eldon stirrups and prepped and draped in the usual fashion for vaginal surgery. Weighted speculum placed in the posterior fornix of vagina. The patient had a large cystocele, third-degree and a second-degree enterocele. The anterior vaginal wall was grasped with two Blane clamps. Incision was made in the midline with Metzenbaum scissors. The bladder was then carefully dissected off of the muscularis of the vagina back to the pubic rami bilaterally. Endopelvic fascia and bladder wall were then plicated with 2-0 Vicryl sutures to elevate the bladder and lengthening the urethra. This was done in two layers because of the large prolapse. At this point, Dr. Bowen assumed care of the patient for a pubovaginal sling and cystoscopy and a Gamboa catheter was placed. I remained to assist. On completion of Dr. Bowen's portion of the procedure, which he will dictate, I resumed care of the patient, resected redundant anterior vaginal wall muscularis mucosa and then closed the vaginal wall with a running locked suture of 2-0 Vicryl. Hemostasis was complete. Good support was evident. Posterior repair and sacrospinous ligament suspension was affected by placing Blane clamps on the perineum and hymenal ring at 5 and 7 o'clock position and inverted triangle of skin was removed from the perineal body and upright triangle from the posterior vaginal floor. The rectovaginal space was entered sharply and dissected sharply and bluntly to the apex of the vagina. Digital dissection was then carried through the right rectal pillar to the sacrospinous ligament and ischial spine. Using a Capio device, two sutures of 2-0 Ethibond were placed through the sacrospinous ligament about 1 and 1.5 cm medial to the sacrospinous ligament. I cut to the ischial spine. Both sutures were double armed. Both arms were brought out through the apex of the vagina tagged and held long for the suture for tying later. The rectovaginal space was now obliterated with interrupted sutures of 2-0 Vicryl, restoring the rectovaginal septum and then additional sutures were used to restore the perineal body. Redundant posterior vaginal muscularis mucosa was then removed and the vaginal wall was closed with a running locked suture of 2-0 Vicryl Rapide, that closure was continued past the hymenal ring down on the perineal body then back up subcutaneous to the hymenal ring where the suture was tied. At this point, hemostasis was complete. Good support was evident except for the vaginal cuff and that was improved now with tying of the sacrospinous ligaments suspension sutures. This brought the apex of vagina well back up into the pelvis. With sponge and needle counts correct, hemostasis assured. Digital rectal exam confirming no sutures into or through the rectal mucosa. The procedure was complete. The vaginal vault was filled with Estrace vaginal cream and a pack of Kerlix gauze was placed. The Gamboa catheter was left to dependent drainage. Sponge and needle counts were correct. Blood loss was around 100 mL. The patient was uneventfully awakened from her general anesthesia and transferred to recovery room in stable condition. Job ID: [id number] DocumentID: [id number] Dictated Date: 03/29/2022 10:16:57 Corporate Development Manager Date: 03/29/2022 19:25:31 Dictated By: JANICE HE MD
[2022-03-30] MEDS: D5 LR IV SOLUTION 1,000 ML IV SCH (01:19)
[2022-03-30 04:25] VITALS: BP 107/59
[2022-03-30] MEDS: KETOROLAC 30 MG/ML VIAL IV SCH (04:25)
--- NOTE | 2022-03-30 07:17 | Progress Note ---
Standard Progress Note Progress Notes/Assess & Plan Date Seen by a Provider: Mar 30, 2022 Time Seen by a Provider: 07:15 Progress/Assessment & Plan This patient is without complaint. She is ambulating tolerating oral intake well has good pain control. She has not voided since her Gamboa catheter was removed. Bladder trial is ongoing. Patient denies chest pain, shortness of breath, nausea vomiting. Vital Signs Date Time Temp Pulse Resp B/P (MAP) Pulse Ox O2 Delivery O2 Flow Rate FiO2 03/30/22 04:25 36.5 65 18 107/59 (75) 97 Room Air 03/29/22 23:00 36.4 74 18 108/58 (75) 97 Room Air 03/29/22 20:00 36.6 81 18 124/64 (84) 97 Room Air 03/29/22 20:00 Room Air 03/29/22 17:19 36.2 86 18 108/65 (79) 99 Nasal Cannula 0.50 03/29/22 12:50 36.6 92 18 118/63 (81) 99 Nasal Cannula 2.00 03/29/22 11:53 Nasal Cannula 2.00 98 03/29/22 10:56 36.4 84 18 130/69 (89) 94 Room Air 03/29/22 10:45 94 Room Air 03/29/22 10:25 Room Air 03/29/22 10:20 36.2 14 124/71 (88) 99 Room Air 03/29/22 10:10 OxyMask 2.00 03/29/22 10:10 16 125/80 (95) 99 OxyMask 2.00 03/29/22 10:00 14 127/79 (95) 99 OxyMask 4.00 03/29/22 09:50 OxyMask 4.00 03/29/22 09:50 14 120/69 (86) 99 OxyMask 4.00 03/29/22 09:40 16 125/75 (92) 98 OxyMask 6.00 03/29/22 09:34 36.4 16 110/65 (80) 97 OxyMask 6.00 03/29/22 09:34 OxyMask 6.00 03/29/22 07:25 36.5 80 18 140/79 (99) 97 Room Air I & O 03/30/22 07:00 Intake Total 6110 ml Output Total 3810 ml Balance 2300 ml Vital signs are stable. Patient is afebrile. The abdomen is benign. Extremities show no clubbing or cyanosis. There is no Homans' sign. Pelvic exam is deferred Assessment and plan Postoperative day #1 doing well plan is for routine care with discharge home when patient is ambulating, voiding, tolerating oral intake and has good pain control Final Diagnosis Vaginal prolapse JANICE HE MD Mar 30, 2022 07:16
--- NOTE | 2022-03-30 08:30 | Anesthesia-General Post-Op ---
General Patient Condition Mental Status/LOC: Same as Preop Cardiovascular: Satisfactory Nausea/Vomiting: Absent Respiratory: Satisfactory Pain: Controlled Complications: Absent Post Op Complications Complications None Follow Up Care/Instructions Patient Instructions None needed. Anesthesia/Patient Condition Patient Condition Patient is doing well, no complaints, stable vital signs, no apparent adverse anesthesia problems. No complications reported per nursing. [place] [facility] [place] [facility] [place] Yes MICHAEL MAYBERRY CRNA Mar 30, 2022 08:30
[2022-03-30 08:57] VITALS: BP 101/53
[2022-03-30] MEDS ORDERED: ESTRADIOL 1 MG TAB (ESTRACE) PO SCH (09:00)
[2022-03-30] MEDS ORDERED: DOCUSATE SODIUM 100 MG (COLACE) CAP PO SCH (09:00)
[2022-03-30] MEDS ORDERED: MELOXICAM 7.5 MG (MOBIC) TABLET PO SCH (10:00)
--- NOTE | 2022-03-30 10:10 | Progress Note - Urology ---
Progress Note-Urology Progress Notes/Assess & Plan Progress/Assessment & Plan DOING WELL. VOIDING WELL. DRY. HAPPY. HOME WITH INSTRUCTIONS Final Diagnosis INCONTINENCE SHANITA GARY MD Mar 30, 2022 10:10
[2022-04-01] MEDS ORDERED: SCOPOLAMINE PATCH REMOVAL TP NR (11:15)
== END 2022-03-30 11:05 | disposition home or self-care (01) ==
LOC: SDC 07:08 → WS 10:37 → SDC 03-30 11:05
PROVIDERS: ATTEND Obstetrics & Gynecology
DX: N39.498 Other specified urinary incontinence (principal); N81.10 Cystocele, unspecified
CPT/HCPCS: 36415; 85025; 87081; 94664